=== PATIENT | female | born 1970 | race Caucasian/White ===

== ENCOUNTER 2021-11-15 20:53 | Inpatient (IN) | payer MEDICARE ==
--- NOTE | 2021-11-15 22:54 | Event Note ---
Date: 11/15/21 EMS documentation not available at time of chart dictation Medical screening examination note: 51-year-old female, with report of cognitive delay, cardiac history, uncertain, presenting to the ER today after reported event of syncope. As per collateral information obtained from nursing team, who obtained history from EMS, patient on a commode, either urinating or defecating, and reportedly had a loss of consciousness. Patient is awake, but confused, moving 4 extremities and protecting airway[address] Place patient on traffic monitor specialist, obtain EKG, appropriate laboratory studies, noncontrast CT scan of the brain. Detailed history and physical to be performed by oncoming provider. Vital Signs 11/15/21 20:53 Temperature 98.9 F Pulse Rate 96 H Respiratory 18 Rate Blood Pressure 114/80 O2 Sat by Pulse 100 Oximetry
--- NOTE | 2021-11-15 23:23 | Cat Scan Report ---
CT HEAD WITHOUT CONTRAST INDICATION / CLINICAL INFORMATION: Syncope, chronic dementia. TECHNIQUE: All CT scans at this location are performed using CT dose reduction for ALARA by means of automated exposure control. COMPARISON: None available. FINDINGS: BRAIN PARENCHYMA: No acute intracranial hemorrhage. No evidence of recent infarct. No mass effect or midline shift. There is generalized atrophy that is greater than expected for the patient's age with probable chronic microvascular ischemic changes seen along the periventricular white matter. VENTRICULAR SYSTEM/EXTRA-AXIAL SPACES: Ventricles are normal for age. No extra-axial fluid collection . ORBITS: Normal as visualized. SKELETAL SYSTEM/SOFT TISSUES: Normal bones and soft tissues. PARANASAL SINUSES/MASTOID AIR CELLS: No significant abnormality. ADDITIONAL FINDINGS: None. IMPRESSION: 1. No acute intracranial abnormality. 2. Additional findings as above. Signer Name: Cosme Rueda MD Signed: 11/15/2021 11:19 PM Workstation Name: [id number]
[2021-11-15 23:31] LABS: Mean Corpuscular HGB Conc 30 % (30-34); Mean Corpuscular Volume 77 fl (79-97); Platelet Count 249 K/mm3 (140-440); Red Blood Count 4.01 M/mm3 (3.65-5.03)
[2021-11-15 23:32] LABS: Hematocrit 30.9 % (30.3-42.9); Hemoglobin 9.2 gm/dl (10.1-14.3); Red Cell Distribution Width 21.7 % (13.2-15.2)
[2021-11-15 23:41] LABS: INR 2.62 (0.87-1.13)
[2021-11-16 00:20] LABS: Albumin 3.5 g/dL (3.9-5); Calcium 8.3 mg/dL (8.4-10.2)
[2021-11-16 00:41] LABS: Chol/HDL Ratio 3.6 %
--- NOTE | 2021-11-16 00:58 | XRay Report ---
CHEST 1 VIEW 11/15/2021 11:46 PM INDICATION / CLINICAL INFORMATION: syncope. COMPARISON: None available. FINDINGS: SUPPORT DEVICES: None. HEART / MEDIASTINUM: The cardiac silhouette is moderately enlarged. No other significant abnormality. LUNGS / PLEURA: There are generalized bilateral pulmonary opacities that are nonspecific. Lung volume s are mildly reduced. No significant pleural effusion. No pneumothorax. ADDITIONAL FINDINGS: No significant additional findings. IMPRESSION: 1. Nonspecific back bilateral pulmonary opacities could represent chronic changes or edema/pneumonia. Please correlate with the clinical findings. 2. Moderate cardiomegaly. Signer Name: Cosme Rueda MD Signed: 11/16/2021 12:54 AM Workstation Name: [id number]
[2021-11-16] MEDS ORDERED: MAGNESIUM SULFATE 2 GM/50 ML BAG IV ONE (01:13)
--- NOTE | 2021-11-16 01:40 | Emergency Department Report ---
ED Syncope HPI - General Chief Complaint: Syncope Stated Complaint: SYNCOPE Time Seen by Provider: 11/15/21 23:24 Source: patient, RN notes reviewed Exam Limitations: other - History of Present Illness Initial Comments: 51-year-old female, with report of cognitive delay, cardiac history, uncertain, presenting to the ER today after reported event of syncope. As per collateral i nformation obtained from nursing team, who obtained history from EMS, patient on a commode, either urinating or defecating, and reportedly had a loss of consciousness. Her daughter caught the patient and prevented her from hitting the ground. Patient is alert, oriented to year, knows she is in a hospital. She denied recall why she is here today. She complains of chronic right hip pain secondary to previous fracture. - Related Data Allergies/Adverse Reactions: Allergies No Known Allergies Allergy (Unverified 11/15/21 22:52) ED Review of Systems ROS: Stated complaint: SYNCOPE Other details as noted in HPI Comment: All other systems reviewed and negative ED Past Medical Hx - Past Medical History Previous Medical History?: Yes Hx Heart Attack/AMI: Yes Hx Congestive Heart Failure: Yes Hx Diabetes: Yes Hx COPD: Yes Additional medical history: PE. Cardiac Arrest. Hypotension - Surgical History Past Surgical History?: No - Social History Smoking Status: Never Smoker Substance Use Type: None ED Physical Exam - General Limitations: Physical Limitation - Other Other exam information: General: No acute distress Head: Atraumatic Eyes: normal appearance ENT: Moist mucous membranes Neck: Normal appearance, no midline tenderness Chest: Clear to auscultation bilaterally CV: Regular rate and rhythm Abdomen: Soft, normal bowel sounds, nontender, nondistended, no rebound or guarding Back: Normal inspection Extremity: Normal inspection, full range of motion Neuro: Alert O x 3, no facial asymmetry, speech clear, no gross motor sensory deficit Psych: Appropriate behavior Skin: No rash ED Course Vital Signs 11/15/21 20:53 Temperature 98.9 F Pulse Rate 96 H Respiratory 18 Rate Blood Pressure 114/80 O2 Sat by Pulse 100 Oximetry ED Medical Decision Making - Lab Data Result diagrams: 11/15/21 23:16 11/15/21 23:16 Lab Results 11/15/21 11/15/21 11/15/21 Range/Units 23:16 23:16 23:16 WBC 8.2 (4.5-11.0) K/mm3 RBC 4.01 (3.65-5.03) M/mm3 Hgb 9.2 L (10.1-14.3) gm/dl Hct 30.9 (30.3-42.9) % MCV 77 L (79-97) fl MCH 23 L (28-32) pg MCHC 30 (30-34) % RDW 21.7 H (13.2-15.2) % Plt Count 249 (140-440) K/mm3 PT 31.5 H (12.2-14.9) Sec. INR 2.62 H (0.87-1.13) Sodium 137 (137-145) mmol/L Potassium 5.2 H (3.6-5.0) mmol/L Chloride 98.6 (98-107) mmol/L Carbon Dioxide 28 (22-30) mmol/L Anion Gap 16 mmol/L BUN 39 H (7-17) mg/dL Creatinine 1.5 H (0.6-1.2) mg/dL Estimated GFR 36 ml/min BUN/Creatinine Ratio 26 % Glucose 100 (65-100) mg/dL Calcium 8.3 L (8.4-10.2) mg/dL Magnesium 1.50 L (1.7-2.3) mg/dL Total Bilirubin 2.40 H (0.1-1.2) mg/dL AST 136 H (5-40) units/L ALT 84 H (7-56) units/L Alkaline Phosphatase 91 (35-129) units/L Total Creatine Kinase 633 H (30-135) units/L Troponin T 0.066 H (0.00-0.029) ng/mL NT-Pro-B Natriuret Pep (0-900) pg/mL Total Protein 6.1 L (6.3-8.2) g/dL Albumin 3.5 L (3.9-5) g/dL Albumin/Globulin Ratio 1.3 % Triglycerides 99 (2-149) mg/dL Cholesterol 90 (50-199) mg/dL LDL Cholesterol Direct 47 L (50-130) mg/dL HDL Cholesterol 25 L (40-59) mg/dL Cholesterol/HDL Ratio 3.60 % TSH (0.270-4.200) mlU/mL Plasma/Serum Alcohol (0-0.07) % 09/06/0311/15/21 11/16/21 Range/Units 23:16 23:16 01:15 WBC (4.5-11.0) K/mm3 RBC (3.65-5.03) M/mm3 Hgb (10.1-14.3) gm/dl Hct (30.3-42.9) % MCV (79-97) fl MCH (28-32) pg MCHC (30-34) % RDW (13.2-15.2) % Plt Count (140-440) K/mm3 PT (12.2-14.9) Sec. INR (0.87-1.13) Sodium (137-145) mmol/L Potassium (3.6-5.0) mmol/L Chloride (98-107) mmol/L Carbon Dioxide (22-30) mmol/L Anion Gap mmol/L BUN (7-17) mg/dL Creatinine (0.6-1.2) mg/dL Estimated GFR ml/min BUN/Creatinine Ratio % Glucose (65-100) mg/dL Calcium (8.4-10.2) mg/dL Magnesium (1.7-2.3) mg/dL Total Bilirubin (0.1-1.2) mg/dL AST (5-40) units/L ALT (7-56) units/L Alkaline Phosphatase (35-129) units/L Total Creatine Kinase (30-135) units/L Troponin T (0.00-0.029) ng/mL NT-Pro-B Natriuret Pep 9542 H (0-900) pg/mL Total Protein (6.3-8.2) g/dL Albumin (3.9-5) g/dL Albumin/Globulin Ratio % Triglycerides (2-149) mg/dL Cholesterol (50-199) mg/dL LDL Cholesterol Direct (50-130) mg/dL HDL Cholesterol (40-59) mg/dL Cholesterol/HDL Ratio % TSH 2.350 (0.270-4.200) mlU/mL Plasma/Serum Alcohol < 0.01 (0-0.07) % - EKG Data -: EKG Interpreted by Ut EKG shows normal: sinus rhythm, ST-T waves (no stemi) Rate: normal - EKG Data When compared to previous EKG there are: previous EKG unavailable - Radiology Data Radiology results: report reviewed CHEST 1 VIEW 11/15/2021 11:46 PM INDICATION / CLINICAL INFORMATION: syncope. COMPARISON: None available. FINDINGS: SUPPORT DEVICES: None. HEART / MEDIASTINUM: The cardiac silhouette is moderately enlarged. No other significant abnormality. LUNGS / PLEURA: There are generalized bilateral pulmonary opacities that are nonspecific. Lung volumes are mildly reduced. No significant pleural effusion. No pneumothorax. ADDITIONAL FINDINGS: No significant additional findings. IMPRESSION: 1. Nonspecific back bilateral pulmonary opacities could represent chronic changes or edema/pneumonia. Please correlate with the clinical findings. 2. Moderate cardiomegaly. CT HEAD WITHOUT CONTRAST INDICATION / CLINICAL INFORMATION: Syncope, chronic dementia. TECHNIQUE: All CT scans at this location are performed using CT dose reduction for ALARA by means of automated exposure control. COMPARISON: None available. FINDINGS: BRAIN PARENCHYMA: No acute intracranial hemorrhage. No evidence of recent infarct. No mass effect or midline shift. There is generalized atrophy that is greater than expected for the patient's age with probable chronic microvascular ischemic changes seen along the periventricular white matter. VENTRICULAR SYSTEM/EXTRA-AXIAL SPACES: Ventricles are normal for age. No extra- axial fluid collection. ORBITS: Normal as visualized. SKELETAL SYSTEM/SOFT TISSUES: Normal bones and soft tissues. PARANASAL SINUSES/MASTOID AIR CELLS: No significant abnormality. ADDITIONAL FINDINGS: None. IMPRESSION: 1. No acute intracranial abnormality. 2. Additional findings as above. - Medical Decision Making 51-year-old female with multiple chronic medical conditions presents to the hospital with syncope while on commode. Differential includes vasovagal, arrhythmia, VT, dehydration, anemia, and PE. Patient has elevated INR suggesting that she was on chronic anticoagulation for pulmonary embolism. At time of my evaluation the patient her current medications are not available. She does not have a previous medical record for review. Mild renal insufficiency secondary to dehydration based on BUN/creatinine ratio, mild elevation in troponin which could be secondary to renal insufficiency (repeat ordered), mild low magnesium and mild elevation in potassium and LFTs. IV magnesium ordered. CT head unremarkable. Chest x-ray findings noted and it is unclear based on report if opacities are chronic or secondary to pulmonary edema or infection. Patient does not have a fever or leukocytosis to indicate pneumonia and she is lying supine in the bed without respiratory distress to indicate pulmonary edema. Patient will be admitted to the hospital service for further treatment Critical Care Time: No Critical care attestation.: If time is entered above; I have spent that time in minutes in the direct care of this critically ill patient, excluding procedure time. ED Disposition Clinical Impression: Syncope, Opacities of both lungs present on chest x-ray, Elevated INR, Renal insufficiency, Hypomagnesemia, Elevated troponin Disposition: 09 ADMITTED INPATIENT Is pt being admited?: Yes Condition: Stable Instructions: Syncope (ED) Time of Disposition: 02:11
[2021-11-16] MEDS ORDERED: DEXTROSE 50% IN WATER (25GM) 50 ML SYRINGE IV PRN (02:14)
[2021-11-16] MEDS ORDERED: MAGNESIUM HYDROXIDE (MOM) ORAL LIQD UDC PO PRN (02:14)
[2021-11-16] MEDS ORDERED: ONDANSETRON 4 MG/2 ML INJ IV PRN (02:14)
[2021-11-16] MEDS ORDERED: MORPHINE 4 MG/1 ML INJ IV PRN (02:14)
[2021-11-16] MEDS ORDERED: MORPHINE 2 MG/1 ML INJ IV PRN (02:14)
[2021-11-16] MEDS ORDERED: ACETAMINOPHEN 325 MG TAB PO PRN (02:14)
--- NOTE | 2021-11-16 02:30 | History and Physical Report ---
History of Present Illness Date of examination: 11/16/21 Date of admission: 11/16/2021 Chief complaint: Syncope History of present illness: 51-year-old female with known history of coronary artery disease, diabetes mellitus, COPD, history of PE, congestive heart failure and history of cognitive delay brought into the emergency room today for evaluation of syncope. Patient was able to answer questions appropriately more information was also gathered from the ER staff. Patient was said to be on the commode at home when she had a syncopal episode witnessed by daughter. Daughter called the patient before hitting the floor. There has been no history of fever or chills, no chest pain or shortness of breath, no nausea vomiting, no abdominal pain. Work-up in the emergency room today, significant findings were magnesium of 1.5, BUN of 39 and creatinine of 1.5. BNP 9542, troponin 0.066. CT scan of the head shows no acute intracranial abnormality. Chest x-ray shows moderate cardiomegaly, nonspecific bilateral pulmonary opacities which could represent chronic changes or edema/pneumonia. Past History Past Medical History: acute HI, COPD, diabetes, heart failure, other (Cardiac Arrest) Past Surgical History: No surgical history Social history: no significant social history Family history: no significant family history Medications and Allergies Allergies Allergy/AdvReac Type Severity Reaction Status Date / Time No Known Allergies Allergy Unverified 11/15/21 22:52 Active Meds: Active Medications Acetaminophen (Acetaminophen 325 Mg Tab) 650 mg PO Q4H PRN PRN Reason: Pain MILD(1-3)/Fever >100.5/CARDENAS Dextrose (Dextrose 50% In Water (25gm) 50 Ml Syringe) 50 ml IV Q30MIN PRN; Protocol PRN Reason: Hypoglycemia Dextrose (Dextrose 50% In Water (25gm) 50 Ml Syringe) 50 ml IV Q30MIN PRN; Protocol PRN Reason: Hypoglycemia Sodium Chloride (Nacl 0.9% 1000 Ml) 1,000 mls @ 125 mls/hr IV DIRECT MELISSA Insulin Human Lispro (Insulin Lispro 100 Unit/Ml) 0 unit SUB-Q ACHS MELISSA; Protocol Insulin Human Lispro (Insulin Lispro 100 Unit/Ml) 0 unit SUB-Q ACHS MELISSA; Pr otocol Magnesium Hydroxide (Magnesium Hydroxide (Mom) Oral Liqd Udc) 30 ml PO Q4H PRN PRN Reason: Constipation Morphine Sulfate (Morphine 2 Mg/1 Ml Inj) 2 mg IV Q4H PRN PRN Reason: Pain, Moderate (4-6) Morphine Sulfate (Morphine 4 Mg/1 Ml Inj) 4 mg IV Q4H PRN PRN Reason: Pain , Severe (7-10) Ondansetron HCl (Ondansetron 4 Mg/2 Ml Inj) 4 mg IV Q8H PRN PRN Reason: Nausea And Vomiting Sodium Chloride (Sodium Chloride 0.9% 10 Ml Flush Syringe) 10 ml IV BID MELISSA Sodium Chloride (Sodium Chloride 0.9% 10 Ml Flush Syringe) 10 ml IV PRN PRN PRN Reason: LINE FLUSH Review of Systems Constitutional: no fever, no chills Cardiovascular: no chest pain, no palpitations Respiratory: no cough, no shortness of breath, no wheezing Gastrointestinal: no abdominal pain, no nausea, no vomiting, no diarrhea Genitourinary Female: no pelvic pain, no flank pain, no dysuria, no hematuria Musculoskeletal: no neck pain, no low back pain Integumentary: no rash, no pruritis Neurological: syncope, no headaches, no confusion Psychiatric: no anxiety, no depression Endocrine: no polyphagia, no polydipsia, no polyuria, no nocturia Exam - Constitutional Vitals: Temp Pulse Resp BP Pulse Ox 98.9 F 90 11 L 127/77 96 11/15/21 20:53 11/16/21 02:18 11/16/21 02:18 11/16/21 02:18 11/16/21 02:18 General appearance: Present: no acute distress, well-nourished, other (Dry oral mucosa) - EENT Eyes: Present: PERRL, EOM intact. Absent: scleral icterus ENT: hearing intact, clear oral mucosa, dentition normal - Neck Neck: Present: supple, normal ROM - Respiratory Respiratory effort: normal Respiratory: bilateral: CTA - Cardiovascular Rhythm: regular Heart Sounds: Present: S1 & S2. Absent: gallop, systolic murmur, diastolic murmur, rub, click - Extremities Extremities: no ischemia, pulses intact, pulses symmetrical, No edema, normal temperature, normal color, Full ROM Peripheral Pulses: within normal limits - Abdominal General gastrointestinal: Present: soft, non-tender, non-distended, normal bowel sounds. Absent: mass - Integumentary Integumentary: Present: clear, warm, dry, normal turgor. Absent: rash - Musculoskeletal Musculoskeletal: strength equal bilaterally - Psychiatric Psychiatric: appropriate mood/affect, intact judgment & insight, memory intact, cooperative - Neurologic Neurologic: CNII-XII intact, no focal deficits, moves all extremities HEART Score - HEART Score Troponin: Troponin T 0.066 ng/mL (0.00-0.029) H 11/15/21 23:16 Results - Labs CBC & Chem 7: 11/15/21 23:16 11/15/21 23:16 Labs: Abnormal lab results 11/15/21 11/15/21 11/15/21 Range/Units 23:16 23:16 23:16 Hgb 9.2 L (10.1-14.3) gm/dl MCV 77 L (79-97) fl MCH 23 L (28-32) pg RDW 21.7 H (13.2-15.2) % PT 31.5 H (12.2-14.9) Sec. INR 2.62 H (0.87-1.13) Potassium 5.2 H (3.6-5.0) mmol/L BUN 39 H (7-17) mg/dL Creatinine 1.5 H (0.6-1.2) mg/dL Calcium 8.3 L (8.4-10.2) mg/dL Magnesium 1.50 L (1.7-2.3) mg/dL Total Bilirubin 2.40 H (0.1-1.2) mg/dL AST 136 H (5-40) units/L ALT 84 H (7-56) units/L Total Creatine Kinase 633 H (30-135) units/L Troponin T 0.066 H (0.00-0.029) ng/mL NT-Pro-B Natriuret Pep (0-900) pg/mL Total Protein 6.1 L (6.3-8.2) g/dL Albumin 3.5 L (3.9-5) g/dL LDL Cholesterol Direct 47 L (50-130) mg/dL HDL Cholesterol 25 L (40-59) mg/dL 11/16/21 Range/Units 01:15 Hgb (10.1-14.3) gm/dl MCV (79-97) fl MCH (28-32) pg RDW (13.2-15.2) % PT (12.2-14.9) Sec. INR (0.87-1.13) Potassium (3.6-5.0) mmol/L BUN (7-17) mg/dL Creatinine (0.6-1.2) mg/dL Calcium (8.4-10.2) mg/dL Magnesium (1.7-2.3) mg/dL Total Bilirubin (0.1-1.2) mg/dL AST (5-40) units/L ALT (7-56) units/L Total Creatine Kinase (30-135) units/L Troponin T (0.00-0.029) ng/mL NT-Pro-B Natriuret Pep 9542 H (0-900) pg/mL Total Protein (6.3-8.2) g/dL Albumin (3.9-5) g/dL LDL Cholesterol Direct (50-130) mg/dL HDL Cholesterol (40-59) mg/dL Assessment and Plan Assessment: 1. Syncope 2. Dehydration 3. Diabetes mellitusblood glucose stable 4. Hypomagnesemia 5. MARK 6. History of CHF 7. History of COPD 8. Elevated troponin-possibly secondary to kidney disease Plan: 1. Patient admitted and placed on telemetry. 2. We will schedule patient for echocardiogram and carotid Doppler. 3. We will also place patient on gentle IV fluid hydration. 4. Patient placed on sliding scale insulin. We will monitor Accu-Cheks. 5. Consult will be placed to nephrology for evaluation and recommendations. 6. We will trend troponin levels. DVT Prophylaxis: Sequential compression device Code Status: Full Code.
[2021-11-16] MEDS: SODIUM CHLORIDE 0.9% 1000 ML 1,000 ML IV SCH ×2 (04:30→17:33)
[2021-11-16] MEDS ORDERED: INSULIN LISPRO 100 UNIT/ML SUB-Q SCH (07:30)
[2021-11-16] MEDS: INSULIN LISPRO 100 UNIT/ML SUB-Q SCH ×5 (08:30→21:45)
--- NOTE | 2021-11-16 10:39 | Event Note ---
Date: 11/16/21 Patient seen and examined today. She is an active smoker and wears 4LNC at home. She does not smoke while using the oxygen. Patient was counseled about cessation and importance of not smoking while having oxygen nearby to prevent injury. She has chronic pain for which she takes percocet 10mg q6h. [place] [employer]ABLE RIGGER Aware was checked and it did confirm that she is prescribed percocet and klonopin monthly. We discussed current care plan. Currently awaiting results of TTE and PT evaluation.
--- NOTE | 2021-11-16 11:52 | XRay Report ---
RIGHT HIP 1 VIEW(S) INDICATION / CLINICAL INFORMATION: R hip pain COMPARISON: None available. FINDINGS: BONES / JOINT(S): Single AP view of the bony pelvis and right hip demonstrates an old right intertroc hanteric femur fracture with internal and external callus formation with fracture healing at 90 degre es. No acute fracture. No significant arthritis. SOFT TISSUES: No significant abnormality. ADDITIONAL FINDINGS: None. Signer Name: Meagan Begum MD Signed: 11/16/2021 11:48 AM Workstation Name: [id number]
[2021-11-16] MEDS: oxyCODONE /ACETAMINOPHEN 5-325MG TAB PO PRN ×2 (12:31→21:12)
[2021-11-16] MEDS: clonazePAM 0.5 MG TAB PO SCH (21:13)
[2021-11-17 05:05] LABS: Basophils # (Auto) 0.1 K/mm3 (0.0-0.1); Basophils % (Auto) 0.7 % (0.0-1.8); Eosinophils % (Auto) 0.3 % (0.0-4.3); Lymphocytes # (Auto) 3.8 K/mm3 (1.2-5.4); Lymphocytes % (Auto) 49.1 % (13.4-35.0); Mean Corpuscular HGB Conc 29 % (30-34); Mean Corpuscular Volume 78 fl (79-97); Monocytes # (Auto) 1.1 K/mm3 (0.0-0.8); Monocytes % (Auto) 13.8 % (0.0-7.3); Platelet Count 214 K/mm3 (140-440); Red Blood Count 4.13 M/mm3 (3.65-5.03)
[2021-11-17 05:06] LABS: Hematocrit 32.2 % (30.3-42.9); Hemoglobin 9.4 gm/dl (10.1-14.3); Red Cell Distribution Width 22.4 % (13.2-15.2)
[2021-11-17 05:24] LABS: BUN/Creatinine Ratio 31; Blood Urea Nitrogen 25 mg/dL (7-17); Calcium 8.1 mg/dL (8.4-10.2); Hemolysis Index 17
[2021-11-17] MEDS: INSULIN LISPRO 100 UNIT/ML SUB-Q SCH ×4 (07:30→22:33)
[2021-11-17] MEDS: oxyCODONE /ACETAMINOPHEN 5-325MG TAB PO PRN (11:07)
--- NOTE | 2021-11-17 11:29 | Progress Note ---
Assessment and Plan Assessment and plan: #Syncope -Echocardiogram completed, read pending -Carotid Doppler pending -Orthostatic vital signs ordered -Patient reporting recent history of falls, PT evaluation ordered #Chronic respiratory failure, not in acute exacerbation #History of COPD -Home supplemental O2 requirement: 2 L -Current O2 requirement: 2 L -Secondary to COPD #Acute kidney injury #Dehydration -SCr 1.5 -> 0/8 s/p IVFs -likely secondary to vasomotor nephropathy -Avoid nephrotoxins and renally dose medications #Type 2 diabetes diabetes mellitus -Patient not taking any medications at home -Glucose currently controlled #Hypomagnesemia -We will replete and monitor #History of CHF, not in acute exacerbation -Echocardiogram ordered, read pending -Patient currently not taking any medications at home #Elevated troponin -troponin 0.06 -Patient without chest pain -possibly secondary to kidney disease #Chronic hip pain -X-ray right hip showed old fracture -Continue Percocet 10mg q6h prn (patient home dose) #Anxiety -Continue Klonopin and citalopram at home doses #History of seizure disorder -Continue Keppra 500 mg twice daily #Tobacco abuse #Tobacco abuse counseling -Patient currently smokes half a pack a day. She does not smoke while she has the oxygen on. We spoke about hazards of smoking while using supplemental oxygen. Patient voiced understanding. -Smoking cessation counseling, supportive care, behavior change counseling, +15 minutes. #Advanced care planning -Disease education conducted, care plan discussed, diagnoses discussed, prognosis discussed, and patient acknowledges understanding with care plan -Time: +30 min History Interval history: No acute events overnight. Patient denies current hip pain and has been requesting Percocet for relief. She denies lightheadedness and dizziness. She has no complaints at this time. Hospitalist Physical - Physical exam Narrative exam: GENERAL: Thin woman appearing older than age. In no acute distress. HEENT: NC @ 2LPM. NECK: Supple. CHEST/LUNGS: CTAB on nasal cannula. HEART/CARDIOVASCULAR: RRR. No murmur, rubs or gallops appreciated. ABDOMEN: +BS. NT/ND. SKIN: No rashes noted. NEURO: No focal motor deficit. Follows all commands. MUSCULOSKELETAL: No joint effusion EXTREMITIES: No cyanosis, clubbing or edema. PSYCH: Cooperative. - Constitutional Vitals: Temp Pulse Resp BP Pulse Ox 97.9 F 101 H 18 120/83 90 11/17/21 08:41 11/17/21 08:41 11/17/21 11:07 11/17/21 08:41 11/17/21 08:41 General appearance: Present: no acute distress, well-nourished, other (Dry oral mucosa) HEART Score - HEART Score Troponin: Troponin T 0.061 ng/mL (0.00-0.029) H 11/16/21 02:38 Results - Labs CBC & Chem 7: 11/17/21 04:31 11/17/21 04:31 Labs: Laboratory Last Values WBC 7.6 K/mm3 (4.5-11.0) 11/17/21 04:31 RBC 4.13 M/mm3 (3.65-5.03) 11/17/21 04:31 Hgb 9.4 gm/dl (10.1-14.3) L 11/17/21 04:31 Hct 32.2 % (30.3-42.9) 11/17/21 04:31 MCV 78 fl (79-97) L 11/17/21 04:31 MCH 23 pg (28-32) L 11/17/21 04:31 MCHC 29 % (30-34) L 11/17/21 04:31 RDW 22.4 % (13.2-15.2) H 11/17/21 04:31 Plt Count 214 K/mm3 (140-440) 11/17/21 04:31 Lymph % (Auto) 49.1 % (13.4-35.0) H 11/17/21 04:31 [place] % (Auto) 13.8 % (0.0-7.3) H 11/17/21 04:31 Eos % (Auto) 0.3 % (0.0-4.3) 11/17/21 04:31 Baso % (Auto) 0.7 % (0.0-1.8) 11/17/21 04:31 Lymph # (Auto) 3.8 K/mm3 (1.2-5.4) 11/17/21 04:31 [place] # (Auto) 1.1 K/mm3 (0.0-0.8) H 11/17/21 04:31 Eos # (Auto) 0.0 K/mm3 (0.0-0.4) 11/17/21 04:31 Baso # (Auto) 0.1 K/mm3 (0.0-0.1) 11/17/21 04:31 Seg Neutrophils % 36.1 % (40.0-70.0) L 11/17/21 04:31 Seg Neutrophils # 2.8 K/mm3 (1.8-7.7) 11/17/21 04:31 PT 31.5 Sec. (12.2-14.9) H 11/15/21 23:16 INR 2.62 (0.87-1.13) H 11/15/21 23:16 Sodium 143 mmol/L (137-145) 11/17/21 04:31 Potassium 4.1 mmol/L (3.6-5.0) D 11/17/21 04:31 Chloride 105.0 mmol/L (98-107) 11/17/21 04:31 Carbon Dioxide 28 mmol/L (22-30) 11/17/21 04:31 Anion Gap 14 mmol/L 11/17/21 04:31 BUN 25 mg/dL (7-17) H 11/17/21 04:31 Creatinine 0.8 mg/dL (0.6-1.2) 11/17/21 04:31 Estimated GFR > 60 ml/min 11/17/21 04:31 BUN/Creatinine Ratio 31 % 11/17/21 04:31 Glucose 79 mg/dL (65-100) 11/17/21 04:31 POC Glucose 107 mg/dL (70-105) H 11/16/21 20:19 Calcium 8.1 mg/dL (8.4-10.2) L 11/17/21 04:31 Magnesium 1.50 mg/dL (1.7-2.3) L 11/15/21 23:16 Total Bilirubin 2.40 mg/dL (0.1-1.2) H 11/15/21 23:16 AST 136 units/L (5-40) H 11/15/21 23:16 ALT 84 units/L (7-56) H 11/15/21 23:16 Alkaline Phosphatase 91 units/L (35-129) 11/15/21 23:16 Total Creatine Kinase 633 units/L (30-135) H 11/15/21 23:16 Troponin T 0.061 ng/mL (0.00-0.029) H 11/16/21 02:38 NT-Pro-B Natriuret Pep 9542 pg/mL (0-900) H 11/16/21 01:15 Total Protein 6.1 g/dL (6.3-8.2) L 11/15/21 23:16 Albumin 3.5 g/dL (3.9-5) L 11/15/21 23:16 Albumin/Globulin Ratio 1.3 % 11/15/21 23:16 Triglycerides 99 mg/dL (2-149) 11/15/21 23:16 Cholesterol 90 mg/dL (50-199) 11/15/21 23:16 LDL Cholesterol Direct 47 mg/dL (50-130) L 11/15/21 23:16 HDL Cholesterol 25 mg/dL (40-59) L 11/15/21 23:16 Cholesterol/HDL Ratio 3.60 % 11/15/21 23:16 TSH 2.350 mlU/mL (0.270-4.200) 11/15/21 23:16 Plasma/Serum Alcohol < 0.01 % (0-0.07) 11/15/21 23:16 Robert/IV: Voiding Method External Female Catheter Active Medications - Current Medications Current Medications: Generic Name Dose Route Start Last Admin Trade Name Freq PRN Reason Stop Dose Admin Acetaminophen 650 mg 11/16/21 02:14 Acetaminophen 325 Mg Tab PO Q4H PRN Pain MILD(1-3)/Fever >100.5/CARDENAS Clonazepam 1 mg 11/16/21 22:00 11/16/21 21:13 Clonazepam 0.5 Mg Tab PO 1 mg QHS MELISSA Administration Dextrose 0 ml 11/16/21 02:14 Dextrose 50% In Water (25gm) 50 Ml Syringe IV Q30MIN PRN Hypoglycemia Protocol Sodium Chloride 1,000 mls @ 75 mls/hr 11/16/21 02:15 11/16/21 17:33 Nacl 0.9% 1000 Ml IV 75 mls/hr DIRECT MELISSA Administration Insulin Human Lispro 0 unit 11/16/21 07:30 11/17/21 07:30 Insulin Lispro 100 Unit/Ml SUB-Q Not Given ACHS MELISSA Protocol Magnesium Hydroxide 30 ml 11/16/21 02:14 Magnesium Hydroxide (Mom) Oral Liqd Udc PO Q4H PRN Constipation Morphine Sulfate 4 mg 11/16/21 02:14 Morphine 4 Mg/1 Ml Inj IV Q4H PRN Pain , Severe (7-10) Ondansetron HCl 4 mg 11/16/21 02:14 11/16/21 04:48 Ondansetron 4 Mg/2 Ml Inj IV 4 mg Q8H PRN Administration Nausea And Vomiting Oxycodone/Acetaminophen 1 tab 11/16/21 10:32 11/17/21 11:07 Oxycodone /Acetaminophen 5-325mg Tab PO 1 tab Q6H PRN Administration Pain, Moderate (4-6) Sodium Chloride 10 ml 11/16/21 10:00 11/17/21 11:15 Sodium Chloride 0.9% 10 Ml Flush Syringe IV 10 ml BID MELISSA Administration Sodium Chloride 10 ml 11/16/21 02:14 Sodium Chloride 0.9% 10 Ml Flush Syringe IV PRN PRN LINE FLUSH Nutrition/Malnutrition Assess - Dietary Evaluation Nutrition/Malnutrition Findings: Nutrition Notes Start: 11/16/21 13:14 Freq: Status: Active Protocol: Document 11/16/21 13:14 LUIS (Rec: 11/16/21 13:25 LUIS [id number]) Nutrition Notes Need for Assessment generated from: MD Order,Education Initial or Follow up Brief Note Current Diagnosis Acute Kidney Injury,COPD, Coronary Artery Disease, Diabetes Other Pertinent Diagnosis PE, CHF, Syncope, Dehydration. Current Diet Cardiac/Consistent Carbohydrates Diet (since B ). Height 5 ft 4 in Weight 46 kg [place] Body Weight (kg) 54.54 BMI 17.4 Intake Prior to Admission Good Weight change and time frame Pt denies having loss body weight [employer]. Weight Status Underweight Subjective/Other Information RD consult for nutrition education assessment. No reports available on Pt's PO intake of meals at the time , will assess at F/U. Pt is on Nasal Cannula, O2 saturation @ 97%, according to Physical Assessment History notes. Pt has missing teeth, according to Physical Assessment History notes. Pt complains of Nausea, according to Physical Assessment History notes. Pt still in critical condition , not a candidate for Nutrition Education at the time, will assess feasibility on F/U. Percent of energy/protein needs met: Prescribed Cardiac/Consistent Carbohydrates Diet provides for energy/protein needs (1, 977 Kcal/86 g) during LOS. Nutrition Intervention Follow-Up By: 11/21/21 Additional Comments Nutrition education will be provided at F/U, if feasible. Continue monitoring food tolerance, %PO intake of meals , and BM.
--- NOTE | 2021-11-17 16:54 | Electrocardiograph Report ---
[facility] Test Date: 2021-11-15 Test Time: 23:22:29 Pat Name: MEME KUMARI Department: Room: A451 1 Gender: F Benefit Authorizer: NURSE : [id number] Requested By: MACKENZIE GUAJARDO Order Number: [id number] Reading MD: Rusty Nix Measurements Intervals [place] Rate: 92 P: 59 NH: 132 QRS: 91 QRSD: 86 T: -64 QT: 354 QTc: 438 Interpretive Statements Sinus rhythm Right axis deviation Borderline T abnormalities, diffuse leads No previous ECG available for comparison Electronically Signed On 11-17-2021 16:54:35 EDT by Rusty Nix
[2021-11-17] MEDS: clonazePAM 0.5 MG TAB PO SCH (22:29)
[2021-11-18] MEDS: oxyCODONE /ACETAMINOPHEN 5-325MG TAB PO PRN ×2 (00:23→21:57)
[2021-11-18] MEDS: SODIUM CHLORIDE 0.9% 1000 ML 1,000 ML IV SCH (07:47)
--- NOTE | 2021-11-18 09:27 | Progress Note ---
Assessment and Plan Assessment and plan: #Syncope -Echocardiogram completed, read pending LVEF normal range 55 to 60% Flattened septum consistent with right ventricular pressure overload RV moderate to severely dilated, hypokinetic Right atrium dilated Severe tricuspid regurgitation moderate pulmonic regurgitation -Carotid Doppler no stenosis bilateral -Orthostatic vital signs ordered -Patient reporting recent history of falls, PT evaluation ordered #Chronic respiratory failure, not in acute exacerbation #History of COPD -Home supplemental O2 requirement: 2 L -Current O2 requirement: 2 L -Secondary to COPD #Acute kidney injury #Dehydration -SCr 1.5 -> 0/8 s/p IVFs -likely secondary to vasomotor nephropathy -Avoid nephrotoxins and renally dose medications #Type 2 diabetes diabetes mellitus -Patient not taking any medications at home -Glucose currently controlled #Hypomagnesemia -We will replete and monitor #History of CHF, not in acute exacerbation -Echocardiogram ordered, read pending -Patient currently not taking any medications at home #Elevated troponin -troponin 0.06 -Patient without chest pain -possibly secondary to kidney disease #Chronic hip pain -X-ray right hip showed old fracture -Continue Percocet 10mg q6h prn (patient home dose) #Anxiety -Continue Klonopin and citalopram at home doses #History of seizure disorder -Continue Keppra 500 mg twice daily #Tobacco abuse #Tobacco abuse counseling +15 min -Patient currently smokes half a pack a day. She can not smoke while she has the oxygen on. We spoke about hazards of smoking while using supplemental oxygen. Patient voiced understanding. --Smoking cessation counseling, supportive care, behavior change counseling, +15 minutes. #Advanced care planning +30 min -Disease education conducted, care plan discussed, diagnoses discussed, prognosis discussed, and patient acknowledges understanding with care plan Discussed fall precautions, discussed the need to follow-up with private neurologist upon discharge. For further evaluation of syncope. -Time: +30 min We will closely monitor the patient and adjust management as needed Follow PT/OT evaluation and recommendations DC planning per case management pending PT OT evaluation and recommendations Plan of care reviewed with the patient and her nurse History Interval history: I have seen and examined the patient at the bedside this morning Patient's chart, tests and reports and current medication list reviewed Patient's syncope work-up is negative No new episodes of syncope Vital signs reviewed Hospitalist Physical - Constitutional Vitals: Temp Pulse Resp BP Pulse Ox 98.3 F 87 19 134/97 99 11/18/21 03:55 11/18/21 03:56 11/18/21 03:55 11/18/21 04:30 11/18/21 08:47 General appearance: Present: no acute distress, well-nourished - Neck Neck: Present: supple, normal ROM - Respiratory Respiratory effort: normal Respiratory: bilateral: diminished, negative: rales, rhonchi, wheezing - Cardiovascular Rhythm: regular Heart Sounds: Present: S1 & S2 - Extremities Extremities: no ischemia, No edema - Abdominal General gastrointestinal: soft, non-tender, non-distended, normal bowel sounds - Integumentary Integumentary: Present: clear, warm - Psychiatric Psychiatric: appropriate mood/affect, cooperative - Neurologic Neurologic: moves all extremities HEART Score - HEART Score Troponin: Troponin T 0.061 ng/mL (0.00-0.029) H 11/16/21 02:38 Results - Labs CBC & Chem 7: 11/17/21 04:31 11/17/21 04:31 Labs: Laboratory Last Values WBC 7.6 K/mm3 (4.5-11.0) 11/17/21 04:31 RBC 4.13 M/mm3 (3.65-5.03) 11/17/21 04:31 Hgb 9.4 gm/dl (10.1-14.3) L 11/17/21 04:31 Hct 32.2 % (30.3-42.9) 11/17/21 04:31 MCV 78 fl (79-97) L 11/17/21 04:31 MCH 23 pg (28-32) L 11/17/21 04:31 MCHC 29 % (30-34) L 11/17/21 04:31 RDW 22.4 % (13.2-15.2) H 11/17/21 04:31 Plt Count 214 K/mm3 (140-440) 11/17/21 04:31 Lymph % (Auto) 49.1 % (13.4-35.0) H 11/17/21 04:31 [place] % (Auto) 13.8 % (0.0-7.3) H 11/17/21 04:31 Eos % (Auto) 0.3 % (0.0-4.3) 11/17/21 04:31 Baso % (Auto) 0.7 % (0.0-1.8) 11/17/21 04:31 Lymph # (Auto) 3.8 K/mm3 (1.2-5.4) 11/17/21 04:31 [place] # (Auto) 1.1 K/mm3 (0.0-0.8) H 11/17/21 04:31 Eos # (Auto) 0.0 K/mm3 (0.0-0.4) 11/17/21 04:31 Baso # (Auto) 0.1 K/mm3 (0.0-0.1) 11/17/21 04:31 Seg Neutrophils % 36.1 % (40.0-70.0) L 11/17/21 04:31 Seg Neutrophils # 2.8 K/mm3 (1.8-7.7) 11/17/21 04:31 PT 31.5 Sec. (12.2-14.9) H 11/15/21 23:16 INR 2.62 (0.87-1.13) H 11/15/21 23:16 Sodium 143 mmol/L (137-145) 11/17/21 04:31 Potassium 4.1 mmol/L (3.6-5.0) D 11/17/21 04:31 Chloride 105.0 mmol/L (98-107) 11/17/21 04:31 Carbon Dioxide 28 mmol/L (22-30) 11/17/21 04:31 Anion Gap 14 mmol/L 11/17/21 04:31 BUN 25 mg/dL (7-17) H 11/17/21 04:31 Creatinine 0.8 mg/dL (0.6-1.2) 11/17/21 04:31 Estimated GFR > 60 ml/min 11/17/21 04:31 BUN/Creatinine Ratio 31 % 11/17/21 04:31 Glucose 79 mg/dL (65-100) 11/17/21 04:31 POC Glucose 91 mg/dL (70-105) 11/17/21 20:28 Calcium 8.1 mg/dL (8.4-10.2) L 11/17/21 04:31 Magnesium 1.50 mg/dL (1.7-2.3) L 11/15/21 23:16 Total Bilirubin 2.40 mg/dL (0.1-1.2) H 11/15/21 23:16 AST 136 units/L (5-40) H 11/15/21 23:16 ALT 84 units/L (7-56) H 11/15/21 23:16 Alkaline Phosphatase 91 units/L (35-129) 11/15/21 23:16 Total Creatine Kinase 633 units/L (30-135) H 11/15/21 23:16 Troponin T 0.061 ng/mL (0.00-0.029) H 11/16/21 02:38 NT-Pro-B Natriuret Pep 9542 pg/mL (0-900) H 11/16/21 01:15 Total Protein 6.1 g/dL (6.3-8.2) L 11/15/21 23:16 Albumin 3.5 g/dL (3.9-5) L 11/15/21 23:16 Albumin/Globulin Ratio 1.3 % 11/15/21 23:16 Triglycerides 99 mg/dL (2-149) 11/15/21 23:16 Cholesterol 90 mg/dL (50-199) 11/15/21 23:16 LDL Cholesterol Direct 47 mg/dL (50-130) L 11/15/21 23:16 HDL Cholesterol 25 mg/dL (40-59) L 11/15/21 23:16 Cholesterol/HDL Ratio 3.60 % 11/15/21 23:16 TSH 2.350 mlU/mL (0.270-4.200) 11/15/21 23:16 Plasma/Serum Alcohol < 0.01 % (0-0.07) 11/15/21 23:16 Robert/IV: Voiding Method Incontinent Active Medications - Current Medications Current Medications: Generic Name Dose Route Start Last Admin Trade Name Freq PRN Reason Stop Dose Admin Acetaminophen 650 mg 11/16/21 02:14 Acetaminophen 325 Mg Tab PO Q4H PRN Pain MILD(1-3)/Fever >100.5/CARDENAS Amitriptyline HCl 50 mg 11/18/21 10:00 Amitriptyline 25 Mg Tab PO DAILY MELISSA Citalopram Hydrobromide 40 mg 11/18/21 10:00 Citalopram 20 Mg Tab PO DAILY MELISSA Clonazepam 1 mg 11/16/21 22:00 11/17/21 22:29 Clonazepam 0.5 Mg Tab PO 1 mg QHS MELISSA Administration Dextrose 0 ml 11/16/21 02:14 Dextrose 50% In Water (25gm) 50 Ml Syringe IV Q30MIN PRN Hypoglycemia Protocol Sodium Chloride 1,000 mls @ 75 mls/hr 11/16/21 02:15 11/18/21 07:47 Nacl 0.9% 1000 Ml IV 75 mls/hr DIRECT MELISSA Administration Insulin Human Lispro 0 unit 11/16/21 07:30 11/17/21 22:33 Insulin Lispro 100 Unit/Ml SUB-Q Not Given ACHS MELISSA Protocol Levetiracetam 500 mg 11/18/21 10:00 Levetiracetam 500 Mg Tab PO BID MELISSA Magnesium Hydroxide 30 ml 11/16/21 02:14 Magnesium Hydroxide (Mom) Oral Liqd Udc PO Q4H PRN Constipation Morphine Sulfate 4 mg 11/16/21 02:14 Morphine 4 Mg/1 Ml Inj IV Q4H PRN Pain , Severe (7-10) Ondansetron HCl 4 mg 11/16/21 02:14 11/16/21 04:48 Ondansetron 4 Mg/2 Ml Inj IV 4 mg Q8H PRN Administration Nausea And Vomiting Oxycodone/Acetaminophen 1 tab 11/16/21 10:32 11/18/21 00:23 Oxycodone /Acetaminophen 5-325mg Tab PO 1 tab Q6H PRN Administration Pain, Moderate (4-6) Sodium Chloride 10 ml 11/16/21 10:00 11/17/21 22:33 Sodium Chloride 0.9% 10 Ml Flush Syringe IV Not Given BID MELISSA Sodium Chloride 10 ml 11/16/21 02:14 Sodium Chloride 0.9% 10 Ml Flush Syringe IV PRN PRN LINE FLUSH Nutrition/Malnutrition Assess - Dietary Evaluation Nutrition/Malnutrition Findings: Nutrition Notes Start: 11/16/21 13:1 4 Freq: Status: Active Protocol: Document 11/16/21 13:14 LUIS (Rec: 11/16/21 13:25 LUIS [id number]) Nutrition Notes Need for Assessment generated from: MD Order,Education Initial or Follow up Brief Note Current Diagnosis Acute Kidney Injury,COPD, Coronary Artery Disease, Diabetes Other Pertinent Diagnosis PE, CHF, Syncope, Dehydration. Current Diet Cardiac/Consistent Carbohydrates Diet (since B ). Height 5 ft 4 in Weight 46 kg [place] Body Weight (kg) 54.54 BMI 17.4 Intake Prior to Admission Good Weight change and time frame Pt denies having loss body weight [employer]. Weight Status Underweight Subjective/Other Information RD consult for nutrition education assessment. No reports available on Pt's PO intake of meals at the time , will assess at F/U. Pt is on Nasal Cannula, O2 saturation @ 97%, according to Physical Assessment History notes. Pt has missing teeth, according to Physical Assessment History notes. Pt complains of Nausea, according to Physical Assessment History notes. Pt still in critical condition , not a candidate for Nutrition Education at the time, will assess feasibility on F/U. Percent of energy/protein needs met: Prescribed Cardiac/Consistent Carbohydrates Diet provides for energy/protein needs (1, 977 Kcal/86 g) during LOS. Nutrition Intervention Follow-Up By: 11/21/21 Additional Comments Nutrition education will be provided at F/U, if feasible. Continue monitoring food tolerance, %PO intake of meals , and BM.
[2021-11-18] MEDS ORDERED: AMITRIPTYLINE 50 MG PO SCH (10:00)
[2021-11-18] MEDS ORDERED: LEVETIRACETAM 500 MG PO SCH (10:00)
[2021-11-18] MEDS ORDERED: CITALOPRAM 40 MG PO SCH (10:00)
[2021-11-18] MEDS: INSULIN LISPRO 100 UNIT/ML SUB-Q SCH ×3 (11:56→21:59)
[2021-11-18] MEDS: AMITRIPTYLINE 25 MG TAB PO SCH (12:13)
[2021-11-18] MEDS: levETIRAcetam 500 MG TAB PO SCH ×2 (12:14→21:58)
[2021-11-18] MEDS: CITALOPRAM 20 MG TAB PO SCH (12:14)
--- NOTE | 2021-11-18 13:07 | Vascular Lab Report ---
DUPLEX DOPPLER ULTRASOUND CAROTID, BILATERAL INDICATION / CLINICAL INFORMATION: syncope. COMPARISON: None available. FINDINGS: RIGHT CAROTID: No significant atherosclerotic plaque. - PLAQUE ESTIMATE (%): None. - CCA velocity: 73 cm/sec. - ICA peak systolic velocity: 79 cm/sec. - ICA/CCA PSV Ratio: Less than 2. Right Vertebral Artery: Antegrade flow. LEFT CAROTID: No significant atherosclerotic plaque. - PLAQUE ESTIMATE (%): None. - CCA velocity: 63 cm/sec. - ICA peak systolic velocity: 94 cm/sec. - ICA/CCA PSV Ratio: Less than 2. Left Vertebral Artery: Antegrade flow. IMPRESSION: 1. Right Internal Carotid Artery: Normal. No stenosis. 2. Left Internal Carotid Artery: Normal. No stenosis. Velocity criteria are extrapolated from diameter data as defined by the Society of Radiologists in [place] [place] Consensus Conference, Radiology 2003; 229;340-346. NO STENOSIS (NORMAL) - Plaque = none; ICA PSV < 125 cm/sec; ICA/CCA PSV Ratio < 2.0 <50% STENOSIS - Plaque < 50%; ICA PSV < 125 cm/sec; ICA/CCA PSV Ratio < 2.0 50-69% STENOSIS - Plaque > 50%; ICA PSV = 125-230 cm/sec; ICA/CCA PSV Ratio = 2.0-4.0 >70% BUT <100% STENOSIS - Plaque > 50%; ICA PSV > 230 cm/sec; ICA/CCA PSV Ratio > 4.0 NEAR OCCLUSION - Plaque = visible lumen; ICA PSV = high/low/none; ICA/CCA PSV Ratio = variable TOTAL OCCLUSION - Plaque = no lumen; ICA PSV = none; ICA/CCA PSV Ratio = N/A Scribed by: Marcia Coleman RDMS, RVT, RMSKS Scribed: 11/18/2021 11:03 AM I have reviewed the images, agree with this report, and edited this report as needed. Signer Name: Maurice Zavaleta MD Signed: 11/18/2021 1:03 PM Workstation Name: [id number]
[2021-11-18] MEDS: clonazePAM 0.5 MG TAB PO SCH (21:58)
[2021-11-19] MEDS: INSULIN LISPRO 100 UNIT/ML SUB-Q SCH ×4 (07:04→17:31)
--- NOTE | 2021-11-19 08:43 | Progress Note ---
Assessment and Plan Assessment and plan: #Syncope -Echocardiogram ; LVEF normal range 55 to 60% Flattened septum consistent with right ventricular pressure overload RV moderate to severely dilated, hypokinetic Right atrium dilated Severe tricuspid regurgitation moderate pulmonic regurgitation -Carotid Doppler no stenosis bilateral -Orthostatic vital signs ordered -Patient reporting recent history of falls, pending PT evaluation . #Chronic respiratory failure, not in acute exacerbation #History of COPD -Home supplemental O2 requirement: 2 L -Current O2 requirement: 2 L -Secondary to COPD #Acute kidney injury/resolved #Dehydration -SCr 1.5 -> 0/8 s/p IVFs -likely secondary to vasomotor nephropathy -Avoid nephrotoxins and renally dose medications #Type 2 diabetes diabetes mellitus -Patient not taking any medications at home -Glucose currently controlled #Hypomagnesemia -We will replete and monitor #History of CHF, not in acute exacerbation -Echocardiogram ordered, read pending -Patient currently not taking any medications at home #Elevated troponin -troponin 0.06 -Patient without chest pain -possibly secondary to kidney disease #Chronic hip pain -X-ray right hip showed old fracture -Continue Percocet 10mg q6h prn (patient home dose) #Anxiety -Continue Klonopin and citalopram at home doses #History of seizure disorder -Continue Keppra 500 mg twice daily #Tobacco abuse #Tobacco abuse counseling +15 min -Patient currently smokes half a pack a day. She can not smoke while she has the oxygen on. We spoke about hazards of smoking while using supplemental oxygen. Patient voiced understanding. --Smoking cessation counseling, supportive care, behavior change counseling, +15 minutes. #Advanced care planning +30 min -Disease education conducted, care plan discussed, diagnoses discussed, prognosis discussed, and patient acknowledges understanding with care plan Discussed fall precautions, discussed the need to follow-up with private neurologist upon discharge. For further evaluation of syncope. -Time: +30 min We will closely monitor the patient and adjust management as needed Follow PT/OT evaluation and recommendations DC planning per case management pending PT OT evaluation and recommendations Plan of care reviewed with the patient and her nurse 11/19/2021; PT has recommended subacute rehab, discussed with the patient. Patient refused and wants to go home Discussed with the patient's daughter who in turn refused subacute rehab/SNF placement. During multidisciplinary rounds discharge planning was discussed, recommended home with home health and home PT. However later patient's at the bedside and the daughter over the phone requested [place] [facility] rehab as they cannot take care of the patient However when patient was positioned to sit up in the bed, had mild drop in blood pressures We will closely monitor the patient next couple of hours, will hold the discharg e Plan safe discharge tomorrow morning History Interval history: I have seen and examined the patient at the bedside Patient's chart and medications reviewed No overnight events reported by the nursing Vital signs noted Patient is alert and awake Responding to simple questions Not in acute distress Complains of weakness Hospitalist Physical - Constitutional Vitals: Temp Pulse Resp BP Pulse Ox 98.0 F 91 H 18 136/96 69 L 11/19/21 07:52 11/19/21 07:52 11/19/21 07:52 11/19/21 07:52 11/19/21 07:52 General appearance: Present: no acute distress, well-nourished - EENT Eyes: Present: PERRL, EOM intact - Neck Neck: Present: supple, normal ROM - Respiratory Respiratory effort: normal Respiratory: bilateral: diminished, negative: rales, rhonchi, wheezing - Cardiovascular Rhythm: regular Heart Sounds: Present: S1 & S2 - Extremities Extremities: no ischemia, No edema - Abdominal General gastrointestinal: soft, non-tender, non-distended, normal bowel sounds - Integumentary Integumentary: Present: clear, warm - Psychiatric Psychiatric: appropriate mood/affect, other (Minimally communicative) - Neurologic Neurologic: other (Generalized weaknessNot [facility] area [facility] thank you Sohail thank you so much) HEART Score - HEART Score Troponin: Troponin T 0.061 ng/mL (0.00-0.029) H 11/16/21 02:38 Results - Labs CBC & Chem 7: 11/17/21 04:31 11/17/21 04:31 Labs: Laboratory Last Values WBC 7.6 K/mm3 (4.5-11.0) 11/17/21 04:31 RBC 4.13 M/mm3 (3.65-5.03) 11/17/21 04:31 Hgb 9.4 gm/dl (10.1-14.3) L 11/17/21 04:31 Hct 32.2 % (30.3-42.9) 11/17/21 04:31 MCV 78 fl (79-97) L 11/17/21 04:31 MCH 23 pg (28-32) L 11/17/21 04:31 MCHC 29 % (30-34) L 11/17/21 04:31 RDW 22.4 % (13.2-15.2) H 11/17/21 04:31 Plt Count 214 K/mm3 (140-440) 11/17/21 04:31 Lymph % (Auto) 49.1 % (13.4-35.0) H 11/17/21 04:31 [place] % (Auto) 13.8 % (0.0-7.3) H 11/17/21 04:31 Eos % (Auto) 0.3 % (0.0-4.3) 11/17/21 04:31 Baso % (Auto) 0.7 % (0.0-1.8) 11/17/21 04:31 Lymph # (Auto) 3.8 K/mm3 (1.2-5.4) 11/17/21 04:31 [place] # (Auto) 1.1 K/mm3 (0.0-0.8) H 11/17/21 04:31 Eos # (Auto) 0.0 K/mm3 (0.0-0.4) 11/17/21 04:31 Baso # (Auto) 0.1 K/mm3 (0.0-0.1) 11/17/21 04:31 Seg Neutrophils % 36.1 % (40.0-70.0) L 11/17/21 04:31 Seg Neutrophils # 2.8 K/mm3 (1.8-7.7) 11/17/21 04:31 PT 31.5 Sec. (12.2-14.9) H 11/15/21 23:16 INR 2.62 (0.87-1.13) H 11/15/21 23:16 Sodium 143 mmol/L (137-145) 11/17/21 04:31 Potassium 4.1 mmol/L (3.6-5.0) D 11/17/21 04:31 Chloride 105.0 mmol/L (98-107) 11/17/21 04:31 Carbon Dioxide 28 mmol/L (22-30) 11/17/21 04:31 Anion Gap 14 mmol/L 11/17/21 04:31 BUN 25 mg/dL (7-17) H 11/17/21 04:31 Creatinine 0.8 mg/dL (0.6-1.2) 11/17/21 04:31 Estimated GFR > 60 ml/min 11/17/21 04:31 BUN/Creatinine Ratio 31 % 11/17/21 04:31 Glucose 79 mg/dL (65-100) 11/17/21 04:31 POC Glucose 159 mg/dL (70-105) H 11/18/21 20:12 Calcium 8.1 mg/dL (8.4-10.2) L 11/17/21 04:31 Magnesium 1.50 mg/dL (1.7-2.3) L 11/15/21 23:16 Total Bilirubin 2.40 mg/dL (0.1-1.2) H 11/15/21 23:16 AST 136 units/L (5-40) H 11/15/21 23:16 ALT 84 units/L (7-56) H 11/15/21 23:16 Alkaline Phosphatase 91 units/L (35-129) 11/15/21 23:16 Total Creatine Kinase 633 units/L (30-135) H 11/15/21 23:16 Troponin T 0.061 ng/mL (0.00-0.029) H 11/16/21 02:38 NT-Pro-B Natriuret Pep 9542 pg/mL (0-900) H 11/16/21 01:15 Total Protein 6.1 g/dL (6.3-8.2) L 11/15/21 23:16 Albumin 3.5 g/dL (3.9-5) L 11/15/21 23:16 Albumin/Globulin Ratio 1.3 % 11/15/21 23:16 Triglycerides 99 mg/dL (2-149) 11/15/21 23:16 Cholesterol 90 mg/dL (50-199) 11/15/21 23:16 LDL Cholesterol Direct 47 mg/dL (50-130) L 11/15/21 23:16 HDL Cholesterol 25 mg/dL (40-59) L 11/15/21 23:16 Cholesterol/HDL Ratio 3.60 % 11/15/21 23:16 TSH 2.350 mlU/mL (0.270-4.200) 11/15/21 23:16 Plasma/Serum Alcohol < 0.01 % (0-0.07) 11/15/21 23:16 Robert/IV: Voiding Method Incontinent Active Medications - Current Medications Current Medications: Generic Name Dose Route Start Last Admin Trade Name Freq PRN Reason Stop Dose Admin Acetaminophen 650 mg 11/16/21 02:14 Acetaminophen 325 Mg Tab PO Q4H PRN Pain MILD(1-3)/Fever >100.5/CARDENAS Amitriptyline HCl 50 mg 11/18/21 10:00 11/18/21 12:13 Amitriptyline 25 Mg Tab PO 50 mg DAILY MELISSA Administration Citalopram Hydrobromide 40 mg 11/18/21 10:00 11/18/21 12:14 Citalopram 20 Mg Tab PO 40 mg DAILY MELISSA Administration Clonazepam 1 mg 11/16/21 22:00 11/18/21 21:58 Clonazepam 0.5 Mg Tab PO 1 mg QHS MELISSA Administration Dextrose 0 ml 11/16/21 02:14 Dextrose 50% In Water (25gm) 50 Ml Syringe IV Q30MIN PRN Hypoglycemia Protocol Sodium Chloride 1,000 mls @ 75 mls/hr 11/16/21 02:15 11/18/21 07:47 Nacl 0.9% 1000 Ml IV 75 mls/hr DIRECT MELISSA Administration Insulin Human Lispro 0 unit 11/16/21 07:30 11/19/21 08:16 Insulin Lispro 100 Unit/Ml SUB-Q Not Given ACHS MELISSA Protocol Levetiracetam 500 mg 11/18/21 10:00 11/18/21 21:58 Levetiracetam 500 Mg Tab PO 500 mg BID MELISSA Administration Magnesium Hydroxide 30 ml 11/16/21 02:14 Magnesium Hydroxide (Mom) Oral Liqd Udc PO Q4H PRN Constipation Morphine Sulfate 4 mg 11/16/21 02:14 Morphine 4 Mg/1 Ml Inj IV Q4H PRN Pain , Severe (7-10) Ondansetron HCl 4 mg 11/16/21 02:14 11/16/21 04:48 Ondansetron 4 Mg/2 Ml Inj IV 4 mg Q8H PRN Administration Nausea And Vomiting Oxycodone/Acetaminophen 1 tab 11/16/21 10:32 11/18/21 21:57 Oxycodone /Acetaminophen 5-325mg Tab PO 1 tab Q6H PRN Administration Pain, Moderate (4-6) Sodium Chloride 10 ml 11/16/21 10:00 11/19/21 08:13 Sodium Chloride 0.9% 10 Ml Flush Syringe IV Not Given BID MELISSA Sodium Chloride 10 ml 11/16/21 02:14 Sodium Chloride 0.9% 10 Ml Flush Syringe IV PRN PRN LINE FLUSH Nutrition/Malnutrition Assess - Dietary Evaluation Nutrition/Malnutrition Findings: Nutrition Notes Start: 11/16/21 13:1 4 Freq: Status: Active Protocol: Document 11/16/21 13:14 LUIS (Rec: 11/16/21 13:25 LUIS [id number]) Nutrition Notes Need for Assessment generated from: MD Order,Education Initial or Follow up Brief Note Current Diagnosis Acute Kidney Injury,COPD, Coronary Artery Disease, Diabetes Other Pertinent Diagnosis PE, CHF, Syncope, Dehydration. Current Diet Cardiac/Consistent Carbohydrates Diet (since B ). 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 Weight Status Underweight Subjective/Other Information RD consult for nutrition education assessment. No reports available on Pt's PO intake of meals at the time , will assess at F/U. Pt is on Nasal Cannula, O2 saturation @ 97%, according to Physical Assessment History notes. Pt has missing teeth, according to Physical Assessment History notes. Pt complains of Nausea, according to Physical Assessment History notes. Pt still in critical condition , not a candidate for Nutrition Education at the time, will assess feasibility on F/U. Percent of energy/protein needs met: Prescribed Cardiac/Consistent Carbohydrates Diet provides for energy/protein needs (1, 977 Kcal/86 g) during LOS. Nutrition Intervention Follow-Up By: 11/21/21 Additional Comments Nutrition education will be provided at F/U, if feasible. Continue monitoring food tolerance, %PO intake of meals , and BM.
[2021-11-19] MEDS: levETIRAcetam 500 MG TAB PO SCH (09:07)
[2021-11-19] MEDS: AMITRIPTYLINE 25 MG TAB PO SCH (09:07)
[2021-11-19] MEDS: CITALOPRAM 20 MG TAB PO SCH (09:07)
[2021-11-19] MEDS: SODIUM CHLORIDE 0.9% 1000 ML 1,000 ML IV SCH (09:08)
--- NOTE | 2021-11-19 12:30 | Discharge Summary ---
Providers - Providers Date of Admission: 11/16/21 02:15 Date of discharge: 11/19/21 Attending physician: JORDAN KOEHLER 11/16/21 02:15 Consult to Dietitian/Nutrition [CONS] Routine Physician Instructions: Reason For Exam: Reason for Consult: Diet education 11/18/21 09:18 Physical Therapy Evaluation and Treat [CONS] Routine Comment: Reason For Exam: History of syncope/evaluate and treat/ DC needs Primary care physician: AMY REEVES Hospitalization Reason for admission: Syncopal episode Condition: Fair Pertinent studies: CT head without contrast; no acute intracranial abnormality Chest x-ray; nonspecific bilateral pulmonary opacities could represent chronic changes or edemapneumonia please correlate Moderate cardiomegaly Echocardiogram; LVEF 50 to 60% right ventricle is moderate to severely dilated hypokinetic Carotid Doppler; no hemodynamically significant stenosis Hip x-ray; right hip demonstrates an old right intertrochanteric femur fracture with internal and external callus formation with fracture healing 90 degrees no acute abnormality noted no significant arthritis Hospital course: 51-year-old female patient with multiple medical problems was admitted through emergency room with a syncopal episode patient was admitted placed on fall precautions and had extensive syncope work-up which was negative , orthostatics reviewed Patient had autonomic imbalance. Physical therapy has evaluated the patient and recommended subacute rehab. Patient and family refused for discharge plan of subacute rehab placement. Case management has assisted with home health services. The patient is comfortable, no new complaints, vital signs stable Physical examination prior to discharge is unremarkable patient is hemodynamically and clinically stable at discharge home with home health Advised to follow-up with primary care physician per schedule Strongly advised fall precautions and continuous supervision to prevent falls and cane or walker as needed Patient is stable at discharge Discharge diagnosis: #Syncope/autonomic imbalance[present on admission] CT head without contrast; no acute intracranial abnormality Chest x-ray; nonspecific bilateral pulmonary opacities could represent chronic changes or edemapneumonia please correlate Moderate cardiomegaly Echocardiogram; LVEF 50 to 60% right ventricle is moderate to severely dilated hypokinetic -Carotid Doppler no stenosis bilateral -Orthostatic vital signs ordered -Patient reporting recent history of falls, pending PT evaluation . #Chronic respiratory failure, not in acute exacerbation #History of COPD -Home supplemental O2 requirement: 2 L -Current O2 requirement: 2 L -Secondary to COPD #Acute kidney injury/resolved #Dehydration -SCr 1.5 -> 0/8 s/p IVFs -likely secondary to vasomotor nephropathy -Avoid nephrotoxins and renally dose medications #Type 2 diabetes diabetes mellitus -Patient not taking any medications at home -Glucose currently controlled #Hypomagnesemia -We will replete and monitor #History of CHF, not in acute exacerbation -Echocardiogram ordered, read pending -Patient currently not taking any medications at home #Elevated troponin -troponin 0.06 -Patient without chest pain -possibly secondary to kidney disease #Chronic hip pain -X-ray right hip showed old fracture -Continue Percocet 10mg q6h prn (patient home dose) #Anxiety -Continue Klonopin and citalopram at home doses #History of seizure disorder -Continue Keppra 500 mg twice daily #Tobacco abuse #Tobacco abuse counseling +15 min -Patient currently smokes half a pack a day. She can not smoke while she has the oxygen on. We spoke about hazards of smoking while using supplemental oxygen. Patient voiced understanding. #Smoking cessation counseling, supportive care, behavior change counseling, +15 minutes. Hemodynamically clinically stable at discharge Strict fall precautions, Advised smoking cessation Plan of care reviewed with patient. Her spouse and her daughter as well as case management and the nurse Stable at discharge Disposition: 06 HOME HEALTH CARE SERVICE Final Discharge Diagnosis (Prints w/discharge instructions): Syncope. Chronic respiratory failure on home oxygen. Acute kidney injury resolved. Dehydration improved. Type 2 diabetes mellitus stable. Hypomagnesemia resolved. History of CHF stable. Elevated troponin insignificant. Chronic hip pain pain medications. Anxiety disorder. History of seizure disorder. Ongoing tobacco use/advised to quit which daughter Time spent for discharge: 35 minutes Core Measure Documentation - Palliative Care Palliative Care/ Comfort Measures: Not Applicable - Core Measures Any of the following diagnoses?: none Exam - Constitutional Vitals: Temp Pulse Resp BP Pulse Ox 98.0 F 81 15 142/101 95 11/19/21 11:02 11/19/21 11:02 11/19/21 11:02 11/19/21 11:02 11/19/21 11:02 General appearance: Present: no acute distress, well-nourished - EENT Eyes: Present: PERRL, EOM intact - Neck Neck: Present: supple, normal ROM - Respiratory Respiratory effort: normal Respiratory: bilateral: diminished, negative: rales, rhonchi, wheezing - Cardiovascular Rhythm: regular Heart Sounds: Present: S1 & S2 - Extremities Extremities: no ischemia, No edema - Abdominal General gastrointestinal: Present: soft, non-tender, non-distended, normal bowel sounds - Integumentary Integumentary: Present: clear, warm - Musculoskeletal Musculoskeletal: strength equal bilaterally - Psychiatric Psychiatric: appropriate mood/affect, cooperative - Neurologic Neurologic: moves all extremities Plan Activity: advance as tolerated, fall precautions Diet: other (Cardiac diet) Special Instructions: smoking cessation Additional Instructions: fall precautions. Continue home oxygen as before[2 L via nasal cannula]. If you have worsening symptoms contact MD or go to the nearest emergency room as needed. Patient was advised smoking cessation, nicotine patch as needed Follow up with: AMY REEVES MD [Primary Care Provider] - 7 Days
[2021-11-19 17:00] VITALS: BP 147/92
--- NOTE | 2021-11-19 17:13 | Event Note ---
Date: 11/19/21 Discharge planning/ PT recommended subacute rehab placement I discussed with the patient she refused and wants to go home I discussed with patient's daughter initially she refused, but when we were planning to discharge today she discussed with case management and requested care home facility/subacute rehab placement. Today's discharge was held, and case management sent request for SNF placement to different centers. However, the patient, her spouse and her daughter changed their mind and decided not to pursue SNF/subacute rehab placement And made plans to take the patient home with home health, home health PT and other services which the case management has arranged. Patient's nurse, and case management have processed the discharge planning, and set up home health services came to the hospital and picked up his Ms. peres. Patient's nurse processed the discharge, the discharge instructions, discharge medication list and necessary documents As well as follow-up instructions. And discussed with the patient and her Patient says she feels better. No new complaints. her blood pressure at discharge was 147/92. Other vital signs are stable,. Patient is stable for discharge. Case management set up home health services Patient was hemodynamically and clinically stable at discharge
== END 2021-11-19 19:04 | disposition home health service (06) | DRG 73 ==
LOC: EDBD → ED 20:53 → 4A 11-16 02:15
PROVIDERS: ADMIT Internal Medicine Geriatric Medicine; ATTEND Internal Medicine
DX: G90.8 Other disorders of autonomic nervous system (principal); N17.0 Acute kidney failure with tubular necrosis; J96.10 Chronic respiratory failure, unspecified whether with hypoxia or hypercapnia; E83.42 Hypomagnesemia; I25.2 Old myocardial infarction; E11.9 Type 2 diabetes mellitus without complications; J44.9 Chronic obstructive pulmonary disease, unspecified; I50.9 Heart failure, unspecified; R77.8 Other specified abnormalities of plasma proteins; I25.10 Atherosclerotic heart disease of native coronary artery without angina pectoris; E86.0 Dehydration; M25.551 Pain in right hip; F41.9 Anxiety disorder, unspecified; G40.909 Epilepsy, unspecified, not intractable, without status epilepticus; Z71.6 Tobacco abuse counseling; F17.200 Nicotine dependence, unspecified, uncomplicated; R55 Syncope and collapse; Z86.711 Personal history of pulmonary embolism
CPT/HCPCS: 36415; 70450; 71045; 80048; 80053; 80061; 80320; 82550; 82962; 83735; 83880; 84443; 84484; 85025; 85027; 85610; 93005; 93306; 93880; 94760; 99406; G0378; Q9967; C8929; G0480; J1815; J2405; J3475; J7030